=== PATIENT | male | born 1955 | race Hispanic/Latino ===

== ENCOUNTER 2018-11-08 19:08 | Emergency (ER) | payer OTHER ==
[~2018-11-08] VITALS: Ht 180.3 cm; Wt 103.0 kg
--- OUTSIDE RECORDS SUMMARY | 2018-11-08 19:11 | XMS REPORT | Clinical Summary ---
Author Author [employer] [employer] Organization [facility] Address Unknown Phone Unavailable Care Team Providers Care Director Employee Communications Name Role Phone Yolanda Mckeon MD PCP Allergies No Known Allergies Medications End Date Status Medication Sig Dispensed Refills Start Date Active aspirin (ECOTRIN) 81 MG Take 1 tablet 0 enteric coated tablet by mouth daily. Active cyanocobalamin 1,000 1 mL once a 0 mcg/mL injection week. 7 Active imatinib (GLEEVEC) 400 MG 1 tablet 0 chemo tablet daily. 7 Active SOTALOL AF 80 mg tablet 1 tab twice a 0 day 7 Active cholecalciferol, vitamin 1 tab daily 0 D3, 4,000 unit for 5 days 7 tabletIndications: weekly Thursday Vitamin D deficiency through Thursday for 3 months than switch to vitamin D 2000 units daily Active atorvastatin (LIPITOR) 40 Take 1 tablet 90 tablet 1 MG tabletIndications: (40 mg total) 8 Mixed hyperlipidemia by mouth daily. Active blood sugar diagnostic Test blood 200 strip 1 strips (ONETOUCH VERIO) sugar twice a 8 strip test day stripsIndications: Type 2 diabetes mellitus without complication, without long-term current use of insulin ([facility]) Active lancets (onetouch Test blood 200 each 1 ultrasoft) sugar twice a 8 miscIndications: Type 2 day diabetes mellitus without complication, without long-term current use of insulin ([facility]) Active fluticasone (FLONASE) 50 USE 1 SPRAY 16 mL 3 mcg/actuation nasal IN EACH NOSE 8 sprayIndications: TWICE DAILY Allergic state, subsequent encounter Active pantoprazole (PROTONIX) 1 tab twice 60 tablet 1 40 MG EC /d To 8 tabletIndications: replace prior Persistent cough, prescription Gastroesophageal reflux disease without esophagitis 08/05/2019 Active fexofenadine (LEELA) Take 1 tablet 90 tablet 1 180 MG tabletIndications: (180 mg 8 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 location ([facility]), Persistent cough Active glimepiride (AMARYL) 2 MG TAKE 1 TABLET 90 tablet 0 tabletIndications: Type 2 BY MOUTH 8 diabetes mellitus without EVERY DAY complication, without long-term current use of insulin ([facility]) Active pantoprazole (PROTONIX) TAKE 1 TABLET 90 tablet 1 40 MG EC BY MOUTH ONCE 8 tabletIndications: DAILY Gastroesophageal reflux disease without esophagitis Active JANUVIA 100 mg TAKE 1 TABLET 90 tablet 0 tabletIndications: Type 2 BY MOUTH 8 diabetes mellitus without EVERY DAY complication, without long-term current use of insulin ([facility]) Active montelukast (SINGULAIR) TAKE 1 TABLET 30 tablet 3 10 mg tabletIndications: NIGHTLY 8 Allergic state, subsequent encounter Active amLODIPine (NORVASC) 10 TAKE 1 TABLET 30 tablet 0 mg tabletIndications: BY MOUTH 8 Essential hypertension EVERY DAY 02/18/2018 Discontinued fexofenadine (LEELA) Take 1 tablet 30 tablet 11 180 MG tabletIndications: (180 mg 7 Acute non-recurrent total) by maxillary sinusitis mouth daily. 02/18/2018 Discontinued atorvastatin (LIPITOR) 40 Take 1 tablet 90 tablet 1 MG tabletIndications: (40 mg total) 7 Mixed hyperlipidemia by mouth daily. 2017 Discontinued glimepiride (AMARYL) 2 MG Take 1 tablet 90 tablet 0 tabletIndications: Type 2 (2 mg total) 7 diabetes mellitus without by mouth complication, without daily. long-term current use of insulin ([facility]) 2017 Discontinued JANUVIA 100 mg Take 1 tablet 90 tablet 0 tabletIndications: Type 2 (100 mg 7 diabetes mellitus without total) by complication, without mouth daily. long-term current use of insulin ([facility]) 02/15/2018 Discontinued pantoprazole (PROTONIX) Take 1 tablet 90 tablet 1 40 MG EC (40 mg total) 7 tabletIndications: by mouth Gastroesophageal reflux daily. disease without esophagitis 12/07/2017 Discontinued montelukast (SINGULAIR) Take by 0 10 mg tablet mouth. 1 tab 7 once a night 12/07/2017 Discontinued fluticasone (FLONASE) 50 2 spray twice 0 mcg/actuation nasal spray a day 7 12/07/2017 Discontinued losartan (COZAAR) 50 MG Take 1 tablet 90 tablet 1 tabletIndications: Type 2 (50 mg total) 7 diabetes mellitus without by mouth complication, without daily. long-term current use of insulin ([facility]) 02/06/2018 Discontinued JANUVIA 100 mg TAKE 1 TABLET 90 tablet 0 tabletIndications: Type 2 BY MOUTH ONCE 7 diabetes mellitus without DAILY complication, without long-term current use of insulin ([facility]) 02/06/2018 Discontinued glimepiride (AMARYL) 2 MG TAKE 1 TABLET 90 tablet 0 tabletIndications: Type 2 BY MOUTH ONCE 7 diabetes mellitus without DAILY complication, without long-term current use of insulin ([facility]) 12/07/2017 Discontinued losartan (COZAAR) 50 MG Take 1 tablet 30 tablet 1 tabletIndications: Type 2 (50 mg total) 8 diabetes mellitus without by mouth complication, without daily. long-term current use of insulin ([facility]) 02/18/2018 Discontinued losartan (COZAAR) 50 MG Take 1 tablet 90 tablet 1 tabletIndications: Type 2 (50 mg total) 8 diabetes mellitus without by mouth complication, without daily. long-term current use of insulin ([facility]) 05/19/2018 Discontinued fluticasone (FLONASE) 50 1 spray In 15.8 mL 3 mcg/actuation nasal each nose 8 sprayIndications: twice /d Allergic state, subsequent encounter 04/21/2018 Discontinued montelukast (SINGULAIR) Take 1 tablet 30 tablet 3 10 mg tabletIndications: (10 mg total) 8 Allergic state, by mouth subsequent encounter nightly. 1 tab once a night 02/18/2018 Discontinued naproxen (NAPROSYN) 500 1 tab 28 tablet 1 MG tabletIndications: w/breakfast 8 Sciatica of right side and 1 tab w./dinner For 14 days 02/05/2018 cyclobenzaprine Take 1 tablet 30 tablet 1 (FLEXERIL) 10 mg (10 mg total) 8 tabletIndications: by mouth Sciatica of right side, daily for 60 Acute bilateral low back days. pain with right-sided sciatica 05/08/2018 Discontinued JANUVIA 100 mg TAKE 1 TABLET 90 tablet 0 tabletIndications: Type 2 BY MOUTH 8 diabetes mellitus without EVERY DAY complication, without long-term current use of insulin ([facility]) 05/08/2018 Discontinued glimepiride (AMARYL) 2 MG TAKE 1 TABLET 90 tablet 0 tabletIndications: Type 2 BY MOUTH ONCE 8 diabetes mellitus without DAILY complication, without long-term current use of insulin ([facility]) 07/22/2018 Discontinued pantoprazole (PROTONIX) TAKE 1 TABLET 90 tablet 1 40 MG EC BY MOUTH ONCE 8 tabletIndications: DAILY Gastroesophageal reflux disease without esophagitis 08/05/2018 Discontinued fexofenadine (LEELA) Take 1 tablet 90 tablet 1 180 MG tabletIndications: (180 mg 8 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 location ([facility]) 07/22/2018 Discontinued losartan (COZAAR) 50 MG Take 1 tablet 90 tablet 1 tabletIndications: Type 2 (50 mg total) 8 diabetes mellitus without by mouth complication, without daily. long-term current use of insulin ([facility]) 09/17/2018 Discontinued montelukast (SINGULAIR) TAKE 1 TABLET 30 tablet 3 10 mg tabletIndications: NIGHTLY 8 Allergic state, subsequent encounter 09/05/2018 Discontinued JANUVIA 100 mg TAKE 1 TABLET 90 tablet 0 tabletIndications: Type 2 EVERY DAY 8 diabetes mellitus without complication, without long-term current use of insulin ([facility]) 08/07/2018 Discontinued glimepiride (AMARYL) 2 MG TAKE 1 TABLET 90 tablet 0 tabletIndications: Type 2 BY MOUTH ONCE 8 diabetes mellitus without DAILY complication, without long-term current use of insulin ([facility]) 10/19/2018 Discontinued amLODIPine (NORVASC) 10 Take 1 tablet 30 tablet 2 mg tabletIndications: (10 mg total) 8 Essential hypertension by mouth daily. 07/22/2018 Discontinued pantoprazole (PROTONIX) Take 1 tablet 60 tablet 2 40 MG EC (40 mg total) 8 tabletIndications: by mouth Gastroesophageal reflux daily. 1 tab disease without twice /d esophagitis 08/04/2018 Discontinued predniSONE (DELTASONE) 10 1 tab daily 6 tablet 0 mg tabletIndications: for 4 days 8 Poison [place]ison than 1/2 tab for 4 days than stop 08/11/2018 predniSONE (DELTASONE) 10 1 tab daily 6 tablet 0 mg tabletIndications: for 4 days 8 Poison [place] than 1/2 tab for 4 days than stop Active Problems Problem Noted Date Poor compliance with CPAP treatment 02/18/2018 B12 deficiency 08/31/2017 VIOLET (obstructive sleep apnea)sees pul not using CPAP 08/31/2017 Noise-induced hearing loss of both ears 08/31/2017 Gastroesophageal reflux disease without esophagitis 08/31/2017 Iron deficiency 08/31/2017 Vitamin D deficiency 08/31/2017 Exposure to dust,due to job : [employer] 08/31/2017 Overview: Hearing loss and ringing both ears Paroxysmal atrial fibrillation 05/27/2017 Cardiomyopathy 05/27/2017 H/O transfusion 05/27/2017 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 11/23/2014 Hypertension Hyperlipidemia Diabetes mellitus Heart disease Encounters Care Team Description Date Type Specialty Yolanda Mckeon MD Type 2 diabetes mellitus without complication, without long- term current use of insulin ([facility]) 2018 Refill Internal Medicine Yolanda Mckeon MD Essential hypertension 10/19/2018 Refill Internal Medicine Yolanda Mckeon MD Allergic state, subsequent encounter 09/17/2018 Refill Internal Medicine Yolanda Mckeon MD Type 2 diabetes mellitus without complication, without long- term current use of insulin ([facility]) 09/05/2018 Refill Internal Medicine Yolanda Mckeon MD Gastroesophageal reflux disease without esophagitis 08/11/2018 Refill Internal Medicine Yolanda Mckeon MD Type 2 diabetes mellitus without complication, without long- term current use of insulin 08/07/2018 Refill Internal Medicine Yolanda Mckeon MD Poison [place] (Primary Dx); Persistent cough; Type 2 diabetes mellitus without complication, without long-term current use of insulin; Gastroesophageal reflux disease without esophagitis; Mixed hyperlipidemia; Essential hypertension; Poor compliance with CPAP treatment; Need for influenza vaccination; Malignant neoplasm of stomach, unspecified location 08/04/2018 Office Visit Internal Medicine Kathy Ovalle MA Poison [place] 08/04/2018 Refill Internal Medicine Yolanda Mckeon MD Type 2 diabetes mellitus without complication, without long- term current use of insulin; Mixed hyperlipidemia; Essential hypertension; Gastroesophageal reflux disease without esophagitis 07/22/2018 Lab Lab Yolanda Mckeon MD Persistent cough (Primary Dx); Gastroesophageal reflux disease without esophagitis; Type 2 diabetes mellitus without complication, without long-term current use of insulin; Essential hypertension; Mixed hyperlipidemia 07/22/2018 Office Visit Internal Medicine Yolanda Mckeon MD Allergic state, subsequent encounter 05/19/2018 Refill Internal Medicine Yolanda Mckeon MD Type 2 diabetes mellitus without complication, without long- term current use of insulin 05/08/2018 Refill Internal Medicine Yolanda Mckeon MD Allergic state, subsequent encounter 04/21/2018 Refill Internal Medicine Yolanda Mckeon MD Gastroesophageal reflux disease without esophagitis (Primary Dx); Allergic state, subsequent encounter; Poor compliance with CPAP treatment; Type 2 diabetes mellitus without complication, without long-term current use of insulin; Mixed hyperlipidemia; Malignant neoplasm of stomach, unspecified location 02/18/2018 Office Visit Internal Medicine Yolanda Mckeon MD Gastroesophageal reflux disease without esophagitis 02/15/2018 Refill Internal Medicine Yolanda Mckeon MD Sciatica of right side; Acute bilateral low back pain with right-sided sciatica 02/07/2018 Refill Internal Medicine Yolanda Mckeon MD Type 2 diabetes mellitus without complication, without long- term current use of insulin 02/06/2018 Refill Internal Medicine Jacek Gimenez MD 12/16/2017 Orders Only Internal Medicine Yolanda Mckeon MD Sciatica of right side (Primary Dx); Acute bilateral low back pain with right-sided sciatica; Essential hypertension; Allergic state, subsequent encounter; Cough; VIOLET (obstructive sleep apnea); Type 2 diabetes mellitus without complication, without long-term current use of insulin 12/07/2017 Office Visit Internal Medicine Yolanda Mckeon MD Type 2 diabetes mellitus without complication, without long- term current use of insulin 2017 Refill Internal Medicine after 11/07/2017 Immunizations Name Dates Previously Given Next Due INFLUENZA QUAD PF 08/04/2018 Influenza Trivalent 11/23/2016 Pneumococcal Conjugate 11/21/2016 13-Valent Family History Medical History Relation Name Comments Stroke Brother Cancer Father bladder Diabetes Father Heart disease Father Heart attack Maternal Grandfather Cancer Maternal liver cancer Grandmother Diabetes Mother Hyperlipidemia Mother Hypertension Mother Liver cancer Paternal Grandfather Heart attack Paternal Grandmother Relation Name Status Comments Brother (Age 46) Father Alive Maternal Grandfather Maternal Grandmother Mother Alive Paternal Grandfather Paternal Grandmother Social History Date Tobacco Use Types Packs/Day Years Used Never Smoker Smokeless Tobacco: Never Used Alcohol Use Drinks/Week oz/Week Comments Yes 1 Cans of 0.6 occasional beer Sex Assigned at Date Recorded Not on file Industry Job Start Date Occupation Not on file Not on file Not on file Travel End Travel History Travel Start No recent travel history available. Last Filed Vital Signs Time Taken Vital Sign Reading 08/04/2018 1:24 PM CDT Blood Pressure 144/78 08/04/2018 1:24 PM CDT Pulse 74 08/04/2018 1:24 PM CDT Temperature 36.7 C (98 F) - Respiratory Rate - 08/04/2018 1:24 PM CDT Oxygen Saturation 97% - Inhaled Oxygen - Concentration 08/04/2018 1:24 PM CDT Weight 102 kg (225 lb) 08/04/2018 1:24 PM CDT Height 180.3 cm (5' 11") 08/04/2018 1:24 PM CDT Body Mass Index 31.38 Plan of Treatment Health Maintenance Due Date Last Done Comments DIABETIC RETINAL EYE EXAM 07/24/2017 07/24/2016 DIABETIC FOOT EXAM 02/18/2019 02/18/2018 SHINGLES VACCINES (1 of 07/28/2019 Postponed from 2006 2) (Insurance / Financial) COLON CANCER SCREENING 11/23/2026 11/23/2016 INFLUENZA VACCINE Completed 08/04/2018, 11/29/2016, 11/23/2016, Additional history exists Procedures Comments Procedure Name Priority Date/Time Associated Diagnosis THYROID STIMULATING Routine 07/22/2018 Type 2 diabetes mellitus HORMONE 11:29 AM CDT without complication, without long-term current use of insulin Mixed hyperlipidemia MICROALBUMIN / CREATININE Routine 07/22/2018 Type 2 diabetes mellitus URINE RATIO 11:29 AM CDT without complication, without long-term current use of insulin COMPREHENSIVE METABOLIC Routine 07/22/2018 Type 2 diabetes mellitus PANEL 11:29 AM CDT without complication, without long-term current use of insulin CBC HEMOGRAM Routine 07/22/2018 Essential hypertension 11:29 AM CDT Gastroesophageal reflux disease without esophagitis Type 2 diabetes mellitus without complication, without long-term current use of insulin LIPID PANEL Routine 07/22/2018 Mixed hyperlipidemia 11:29 AM CDT HEMOGLOBIN A1C Routine 07/22/2018 Type 2 diabetes mellitus 11:29 AM CDT without complication, without long-term current use of insulin HEMOGLOBIN A1C Routine 02/13/2018 Type 2 diabetes mellitus 11:00 AM CDT without complication, without long-term current use of insulin OBTAIN MEDICAL RECORDS Routine 12/16/2017 after 11/07/2017 Results * Microalbumin / creatinine urine ratio (07/22/2018 11:29 AM CDT) Creatinine, urine, random 117 20 - 370 mg/dL [facility] Microalbumin, urine 0.6 See Note: mg/dL [facility] Comment: LEE Reference Range: Reference Range Not established Microalbumin/creatinine 5 <30 mcg/mg creat [facility] ratio Comment: [place] The ADA defines abnormalities in albumin excretion as follows: Category Result (mcg/mg creatinine) Normal <30 Microalbuminuria 30-299 Clinical albuminuria > SK=[id number] The ADA recommends that at least two of three specimens collected within a 3-6 month period be abnormal before considering a patient to be within a diagnostic category. Specimen Blood Resulting Agency Comment Performing Organization Information: Site ID: [id number] Name: [facility] Address: [address] [place] [id number] Director: Laura Blakely Performing Organization Address [facility] [place] [address] * CBC hemogram (07/22/2018 11:29 AM CDT) WBC 4.4 3.8 - 10.8 Thousand/uL [facility] RBC 4.30 4.20 - 5.80 Million/uL [facility] HGB 13.7 13.2 - 17.1 g/dL [facility] HCT 39.7 38.5 - 50.0 % [facility] MCV 92.3 80.0 - 100.0 fL [facility] MCH 31.9 27.0 - 33.0 pg [facility] MCHC 34.5 32.0 - 36.0 g/dL [facility] RDW 14.5 11.0 - 15.0 % [facility] Platelet count 192 140 - 400 Thousand/uL [facility] MPV 10.1 7.5 - 12.5 fL [facility] Specimen Blood Resulting Agency Comment Performing Organization Information: Site ID: [id number] Name: [facility] Address: [address] [place] [phone] Director: Laura Blakely Performing Organization Address [facility] [place] [address] * Thyroid stimulating hormone (07/22/2018 11:29 AM CDT) TSH 1.90 0.40 - 4.50 mIU/L [facility] Specimen Blood Resulting Agency Comment Performing Organization Information: Site ID: [id number] Name: [facility] Address: [address] [place] [phone] Director: Laura Blakely Performing Organization Address [facility] [place] [address] * Hemoglobin A1c (07/22/2018 11:29 AM CDT) Only the most recent of 2 results within the time period is included. Hemoglobin A1C 6.6 (H) <5.7 % of total Hgb [facility] Comment: LEE For someone without known diabetes, a hemoglobin A1c value of 6.5% or greater indicates that they may have diabetes and this should be confirmed with a follow-up test. For someone with known diabetes, a value <7% indicates that their diabetes is well controlled and a value greater than or equal to 7% indicates suboptimal control. A1c targets should be individualized based on duration of diabetes, age, comorbid conditions, and other considerations. Currently, no consensus exists regarding use of hemoglobin A1c for diagnosis of diabetes for children. Specimen Blood Resulting Agency Comment Performing Organization Information: Site ID: [id number] Name: [facility] Address: [address] [place] [phone] Director: Laura Blakely Performing Organization Address City/[facility] Phone Number [facility] [address] [address] * Lipid panel (07/22/2018 11:29 AM CDT) Cholesterol, total 104 <200 mg/dL [facility] HDL cholesterol 36 (L) >40 mg/dL [facility] Triglycerides 94 <150 mg/dL [facility] LDL cholesterol 50 mg/dL (calc) [facility] calculated Comment: LEE Reference range: <100 Desirable range <100 mg/dL for primary prevention; <70 mg/dL for patients with CHD or diabetic patients with > or=2 CHD risk factors. LDL-C is now calculated using the Dallas-Kaitlin calculation, which is a validated novel method providing better accuracy than the Friedewald equation in the estimation of LDL-C. [place] ORO et al. GABI. 2013;310(19): 7074-5011 (http://education.IMshopping.com/faq/JBV836) Cholesterol/HDL ratio 2.9 <5.0 (calc) [facility] Non-HDL cholesterol 68 <130 mg/dL (calc) [facility] [employer] Comment: LEE For patients with diabetes plus 1 major ASCVD risk factor, treating to a non-HDL-C goal of <100 mg/dL (LDL-C of <70 mg/dL) is considered a therapeutic option. Specimen Blood Resulting Agency Comment Performing Organization Information: Site ID: [id number] Name: [facility] Address: [address] [place] [phone] Director: Laura Blakely Performing Organization Address City/State/Zipcode Phone Number [facility] [place] [phone] [place] [address] * Comprehensive metabolic panel (07/22/2018 11:29 AM CDT) Glucose 115 (H) 65 - 99 mg/dL [facility] Comment: LEE Fasting reference interval For someone without known diabetes, a glucose value between 100 and 125 mg/dL is consistent with prediabetes and should be confirmed with a follow-up test. BUN, whole blood 11 7 - 25 mg/dL [facility] Creatinine 0.83 0.70 - 1.25 mg/dL [facility] Comment: LEE For patients >49 years of age, the reference limit for Creatinine is approximately 13% higher for people identified as -Croatian. EGFR Non-Afr. Croatian 95 > OR=60 mL/min/1.73m2 [facility] EGFR 110 > OR=60 mL/min/1.73m2 [facility] BUN/creatinine ratio NOT APPLICABLE 6 - 22 (calc) [facility] Sodium 140 135 - 146 mmol/L [facility] Potassium 4.4 3.5 - 5.3 mmol/L [facility] Chloride 104 98 - 110 mmol/L [facility] CO2 30 20 - 32 mmol/L [facility] Calcium 8.7 8.6 - 10.3 mg/dL [facility] Protein 6.3 6.1 - 8.1 g/dL [facility] Albumin, S 3.8 3.6 - 5.1 g/dL [facility] Globulin, total 2.5 1.9 - 3.7 g/dL (calc) [facility] Albumin/globulin ratio 1.5 1.0 - 2.5 (calc) [facility] Total bilirubin 0.7 0.2 - 1.2 mg/dL [facility] Alkaline phosphatase 61 40 - 115 U/L [facility] AST 25 10 - 35 U/L [facility] ALT 33 9 - 46 U/L [facility] Specimen Blood Resulting Agency Comment Performing Organization Information: Site ID: [id number] Name: [facility] Address: [address] [place] [phone] Director: Laura Blakely Performing Organization Address City/State/Zipcode Phone Number [facility] [address] [place] [address] * Obtain medical records (12/16/2017) Narrative Performed At after 11/07/2017 Insurance Payer Benefit Subscriber ID Type Phone Address Plan / Group AETNA AETNA xxxxxxxxxx HMO HMO,POS,EP O, MC/EC Advance Directives Patient has advance care planning documents on file. For more information, yuriy butts contact: Davy Spicer [address] [place] [address]
--- NOTE | 2018-11-08 20:52 | Diagnostic Imaging Report ---
EXAMINATION: CHEST 2 VIEWS INDICATION: Productive cough COMPARISON: None FINDINGS: PA and lateral views TUBES and LINES: None. LUNGS: The lungs are diffusely hyperinflated with flattening of the diaphragms. There is no evidence of pneumonia or pulmonary edema. PLEURA: No pleural effusion or pneumothorax. HEART AND MEDIASTINUM: The heart is enlarged. A ICD lead terminates in the right ventricle. BONES AND SOFT TISSUES: No focal osseous lesions. Soft tissues are unremarkable. UPPER ABDOMEN: No free air under the diaphragm. IMPRESSION: Cardiomegaly without vascular congestion. Diffuse pulmonary hyperinflation. Signed by: Dr. Jag Hays MD on 11/08/2018 8:48 PM
[2018-11-08 22:18] VITALS: BP 168/90
== END 2018-11-08 22:25 | disposition home or self-care (01) ==
LOC: ER 19:08
DX: R05 Cough (principal); J42 Unspecified chronic bronchitis; J30.1 Allergic rhinitis due to pollen; I10 Essential (primary) hypertension; E11.9 Type 2 diabetes mellitus without complications; E78.5 Hyperlipidemia, unspecified; Z95.810 Presence of automatic (implantable) cardiac defibrillator
CPT/HCPCS: 71046; 99283

== ENCOUNTER 2019-03-22 16:05 | Emergency (ER) | payer OTHER ==
[~2019-03-22] VITALS: Ht 180.3 cm; Wt 103.0 kg
--- OUTSIDE RECORDS SUMMARY | 2019-03-22 16:20 | XMS REPORT | Clinical Summary ---
Author Author [facility] Address Unknown Phone Unavailable Care Team Providers Care Shell Trim Tool Setter Name Role Phone Yolanda Mckeon MD PCP [...] complication, without long-term current use of insulin ([facility]) Active lancets (onetouch Test blood 200 each 1 ultrasoft) sugar twice a 8 miscIndications: Type 2 day diabetes mellitus without complication, without long-term current use of insulin ([facility]) Active fluticasone (FLONASE) 50 USE 1 SPRAY 16 mL 3 mcg/actuation nasal IN EACH NOSE 8 sprayIndications: TWICE DAILY Allergic state, subsequent encounter 08/05/2019 Active fexofenadine (LEELA) Take 1 tablet 90 tablet 1 180 MG tabletIndications: (180 mg 8 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 location ([facility]), Persistent cough Active glimepiride (AMARYL) 2 MG TAKE 1 TABLET 90 tablet 0 tabletIndications: Type 2 BY MOUTH 8 diabetes mellitus without EVERY DAY complication, without long-term current use of insulin ([facility]) Active sitaGLIPtin (JANUVIA) 100 Take 1 tablet 30 tablet 0 201 MG tabletIndications: (100 mg 9 type 2 diabetes mellitus total) by mouth daily. Active pantoprazole (PROTONIX) Take 1 tablet 30 tablet 0 40 MG EC (40 mg total) 9 tabletIndications: by mouth Gastroesophageal reflux daily. disease without esophagitis Active amLODIPine (NORVASC) 10 TAKE 1 TABLET 30 tablet 0 mg tabletIndications: BY MOUTH 9 Essential hypertension EVERY DAY Active azelastine HCl into each 0 (AZELASTINE NASL) nostril. 9 Active meloxicam (MOBIC) 7.5 mg 1 tab daily 20 tablet 0 tabletIndications: with 9 Sciatica of left side breakfast and 1 tab with dinner for 10 days Active montelukast (SINGULAIR) TAKE 1 TABLET 30 tablet 0 10 mg tabletIndications: BY MOUTH 9 Allergic state, EVERY DAY AT subsequent encounter NIGHT Active gabapentin (NEURONTIN) TAKE 1 60 capsule 0 300 mg CAPSULE BY 9 capsuleIndications: MOUTH IN THE Sciatica of left side MORNING AND IN THE EVENING 05/19/2018 Discontinued fluticasone (FLONASE) 50 1 spray In 15.8 mL 3 mcg/actuation nasal each nose 8 sprayIndications: twice /d Allergic state, subsequent encounter 04/21/2018 Discontinued montelukast (SINGULAIR) Take 1 tablet 30 tablet 3 10 mg tabletIndications: (10 mg total) 8 Allergic state, by mouth subsequent encounter nightly. 1 tab once a night 05/08/2018 Discontinued JANUVIA 100 mg TAKE 1 TABLET 90 tablet 0 tabletIndications: Type 2 BY MOUTH 8 diabetes mellitus without EVERY DAY complication, without long-term current use of insulin ([facility]) 05/08/2018 Discontinued glimepiride (AMARYL) 2 MG TAKE 1 TABLET 90 tablet 0 tabletIndications: Type 2 BY MOUTH ONCE 8 diabetes mellitus without DAILY complication, without long-term current use of insulin ([facility]) 07/22/2018 Discontinued pantoprazole (PROTONIX) TAKE 1 TABLET 90 tablet 1 40 MG EC BY MOUTH ONCE 8 tabletIndications: DAILY Gastroesophageal reflux disease without esophagitis 08/05/2018 Discontinued fexofenadine (LEELA) Take 1 tablet 90 tablet 1 180 MG tabletIndications: (180 mg 8 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 location ([facility]) 07/22/2018 Discontinued losartan (COZAAR) 50 MG Take 1 tablet 90 tablet 1 tabletIndications: Type 2 (50 mg total) 8 diabetes mellitus without by mouth complication, without daily. long-term current use of insulin ([facility]) 09/17/2018 Discontinued montelukast (SINGULAIR) TAKE 1 TABLET 30 tablet 3 10 mg tabletIndications: NIGHTLY 8 Allergic state, subsequent encounter 09/05/2018 Discontinued JANUVIA 100 mg TAKE 1 TABLET 90 tablet 0 tabletIndications: Type 2 EVERY DAY 8 diabetes mellitus without complication, without long-term current use of insulin ([facility]) 08/07/2018 Discontinued glimepiride (AMARYL) 2 MG TAKE 1 TABLET 90 tablet 0 tabletIndications: Type 2 BY MOUTH ONCE 8 diabetes mellitus without DAILY complication, without long-term current use of insulin ([facility]) 10/19/2018 Discontinued amLODIPine (NORVASC) 10 Take 1 tablet 30 tablet 2 mg tabletIndications: (10 mg total) 8 Essential hypertension by mouth daily. 07/22/2018 Discontinued pantoprazole (PROTONIX) Take 1 tablet 60 tablet 2 40 MG EC (40 mg total) 8 tabletIndications: by mouth Gastroesophageal reflux daily. 1 tab disease without twice /d esophagitis 02/21/2019 Discontinued pantoprazole (PROTONIX) 1 tab twice 60 tablet 1 40 MG EC /d To 8 tabletIndications: replace prior Persistent cough, prescription Gastroesophageal reflux disease without esophagitis 08/04/2018 Discontinued predniSONE (DELTASONE) 10 1 tab daily 6 tablet 0 09/12/201 mg tabletIndications: for 4 days 8 Poison madison than 1/2 tab for 4 days than stop 08/11/2018 predniSONE (DELTASONE) 10 1 tab daily 6 tablet 0 mg tabletIndications: for 4 days 8 Poison [place] than 1/2 tab for 4 days than stop 2018 Discontinued glimepiride (AMARYL) 2 MG TAKE 1 TABLET 90 tablet 0 tabletIndications: Type 2 BY MOUTH 8 diabetes mellitus without EVERY DAY complication, without long-term current use of insulin ([facility]) 01/23/2019 Discontinued pantoprazole (PROTONIX) TAKE 1 TABLET 90 tablet 1 40 MG EC BY MOUTH ONCE 8 tabletIndications: DAILY Gastroesophageal reflux disease without esophagitis 12/02/2018 Discontinued JANUVIA 100 mg TAKE 1 TABLET 90 tablet 0 tabletIndications: Type 2 BY MOUTH 8 diabetes mellitus without EVERY DAY complication, without long-term current use of insulin ([facility]) 01/20/2019 Discontinued montelukast (SINGULAIR) TAKE 1 TABLET 30 tablet 3 10 mg tabletIndications: NIGHTLY 8 Allergic state, subsequent encounter 11/22/2018 Discontinued amLODIPine (NORVASC) 10 TAKE 1 TABLET 30 tablet 0 mg tabletIndications: BY MOUTH 8 Essential hypertension EVERY DAY 12/25/2018 Discontinued amLODIPine (NORVASC) 10 TAKE 1 TABLET 30 tablet 0 mg tabletIndications: BY MOUTH 9 Essential hypertension EVERY DAY 01/18/2019 Discontinued JANUVIA 100 mg TAKE 1 TABLET 30 tablet 0 tabletIndications: Type 2 BY MOUTH 9 diabetes mellitus without EVERY DAY complication, without long-term current use of insulin ([facility]) 01/28/2019 Discontinued amLODIPine (NORVASC) 10 TAKE 1 TABLET 30 tablet 0 mg tabletIndications: BY MOUTH 9 Essential hypertension EVERY DAY 01/23/2019 Discontinued sitaGLIPtin (JANUVIA) 100 Take 1 tablet 30 tablet 0 MG tabletIndications: (100 mg 9 type 2 diabetes mellitus total) by mouth daily. 02/15/2019 Discontinued montelukast (SINGULAIR) TAKE 1 TABLET 30 tablet 0 10 mg tabletIndications: BY MOUTH 9 Allergic state, EVERY DAY AT subsequent encounter NIGHT 02/21/2019 Discontinued amLODIPine (NORVASC) 10 TAKE 1 TABLET 30 tablet 0 01/28/ mg tabletIndications: BY MOUTH 9 Essential hypertension EVERY DAY 02/21/2019 Discontinued pantoprazole (PROTONIX) TAKE 1 TABLET 30 tablet 0 40 MG EC BY MOUTH 9 tabletIndications: EVERY DAY Gastroesophageal reflux disease without esophagitis 03/18/2019 Discontinued montelukast (SINGULAIR) TAKE 1 TABLET 30 tablet 0 10 mg tabletIndications: BY MOUTH AT 9 Allergic state, NIGHT subsequent encounter 03/20/2019 Discontinued gabapentin (NEURONTIN) 1 tab qam and 60 capsule 0 300 mg 1 tab qpm 9 capsuleIndications: Sciatica of left side Status Hospital, Clinic, or Ordered Dose Route Frequency Start End Date Other Facility Date Administered Medication Ended keTOROlac (TORadol) 30 mg IM once 02/22/20 injection 30 19 9 mgIndications: Sciatica of left side Active Problems Problem Noted Date Poor compliance with CPAP treatment 02/18/2018 B12 deficiency 08/31/2017 VIOLET (obstructive sleep apnea)sees pul not using CPAP 08/31/2017 Noise-induced hearing loss of both ears 08/31/2017 Gastroesophageal reflux disease without esophagitis 08/31/2017 Iron deficiency 08/31/2017 Vitamin D deficiency 08/31/2017 Exposure to dust,due to job : [employer] 08/31/2017 Overview: Hearing loss and ringing both ears Paroxysmal atrial fibrillation 05/27/2017 Cardiomyopathy 05/27/2017 H/O transfusion 05/27/2017 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 S/p GI bleed/weight loss s/p resection nov 2016 s/p chemotherapy since than ( oral ) : followed at [place] by [place] [facility] Dr Solo Valenzuela 11/23/2014 Hypertension Hyperlipidemia Diabetes mellitus Heart disease Encounters Care Team Description Date Type Specialty Kathy Ovalle MA 03/22/2019 Telephone Internal Medicine Yolanda Mckeon MD Sciatica of left side 03/20/2019 Refill Internal Medicine Yolanda Mckeon MD Allergic state, subsequent encounter 03/18/2019 Refill Internal Medicine ProviderJacek MD 02/23/2019 Orders Only Internal Medicine Makhoul, Yolanda, MD Sciatica of left side (Primary Dx); Cancer of gastrointestinal tract (HCC); Heart disease 02/21/2019 Office Visit Internal Medicine Amarilys Irizarry RN 02/18/2019 Telephone Family Medicine Yolanda Mckeon MD Allergic state, subsequent encounter 02/15/2019 Refill Internal Medicine Yolanda Mckeon MD 02/15/2019 Telephone [facility] Medicine Yolanda Mckeon MD Gastroesophageal reflux disease without esophagitis 02/13/2019 Refill Internal Medicine Yolanda Mckeon MD Essential hypertension 01/31/2019 Refill Internal Medicine Yolanda Mckeon MD Essential hypertension 01/28/2019 Refill Internal Medicine Yolanda Mckeon MD Type 2 diabetes mellitus without complication, without long- term current use of insulin ([facility]) 01/23/2019 Refill Family Medicine Yolanda Mckeon MD Gastroesophageal reflux disease without esophagitis 01/23/2019 Refill Internal Medicine Yolanda Mckeon MD Type 2 diabetes mellitus without complication, without long- term current use of insulin ([facility]) 01/23/2019 Refill Family Medicine Yolanda Mckeon MD Allergic state, subsequent encounter 01/20/2019 Refill Internal Medicine Yolanda Mckeon MD Type 2 diabetes mellitus without complication, without long- term current use of insulin ([facility]) 01/17/2019 Telephone [facility] Yolanda Mckeon MD Type 2 diabetes mellitus without complication, without long- term current use of insulin ([facility]) 01/07/2019 Refill Internal Medicine Yolanda Mckeon MD Type 2 diabetes mellitus without complication, without long- term current use of insulin ([facility]) 01/03/2019 Refill Internal Medicine Yolanda Mckeon MD Essential hypertension 12/25/2018 Refill Internal Medicine Yolanda Mckeon MD Type 2 diabetes mellitus without complication, without long- term current use of insulin ([facility]) 12/02/2018 Refill Internal Medicine Yolanda Mckeon MD Essential hypertension 11/22/2018 Refill Internal Medicine Yolanda Mckeon MD Type 2 diabetes mellitus without complication, without long- term current use of insulin ([facility]) 2018 Refill Internal Medicine Yolanda Mckeon MD Essential hypertension 10/19/2018 Refill Internal Medicine Yolanda Mckeon MD Allergic state, subsequent encounter 09/17/2018 Refill Internal Medicine Yolanda Mckeon MD Type 2 diabetes mellitus without complication, without long- term current use of insulin ([facility]) 09/05/2018 Refill Internal Medicine Yolanda Mckeon MD [...] state, subsequent encounter 04/21/2018 Refill Internal Medicine after 03/21/2018 Immunizations Name Dates Previously Given Next Due INFLUENZA QUAD PF 08/04/2018, 11/29/2016 Influenza Trivalent 11/23/2016 Pneumococcal Conjugate 11/21/2016 13-Valent Pneumococcal 11/20/2016 Polysaccharide Family History Medical History Relation Name Comments [...] Used Never Smoker Smokeless Tobacco: Never Used Tobacco Cessation: Counseling Given: No Alcohol Use Drinks/Week oz/Week Comments Yes 1 Cans of 0.6 occasional beer Sex Assigned at Date Recorded Not on file Industry Job Start Date Occupation Not on file Not on file Not on file Travel End Travel History Travel Start No recent travel history available. Last Filed Vital Signs Time Taken Vital Sign Reading 02/21/2019 3:47 PM CDT Blood Pressure 144/73 02/21/2019 3:47 PM CDT Pulse 87 02/21/2019 3:47 PM CDT Temperature 36.9 C (98.4 F) - Respiratory Rate - 02/21/2019 3:47 PM CDT Oxygen Saturation 97% - Inhaled Oxygen - Concentration 02/21/2019 3:47 PM CDT Weight 101 kg (222 lb 12.8 oz) 02/21/2019 3:47 PM CDT Height 180.3 cm (5' 11") 02/21/2019 3:47 PM CDT Body Mass Index 31.07 Plan of Treatment Care Team Description Date Type Specialty Yolanda Mckeon MD [address] [place], [place] [id number] 03/28/2019 Office Visit Internal Medicine Health Maintenance Due Date Last Done Comments DIABETIC RETINAL EYE EXAM 07/24/2018 07/24/2016 DIABETIC FOOT EXAM 02/18/2019 02/18/2018 INFLUENZA VACCINE 06/23/2019 08/04/2018, 11/29/2016, 11/23/2016, Additional history exists SHINGLES VACCINES (#1) 07/28/2019 Postponed from 2006 (Insurance / Financial) COLON CANCER SCREENING 11/23/2026 11/23/2016 Procedures Comments Procedure Name Priority Date/Time Associated Diagnosis OBTAIN MEDICAL RECORDS Routine 02/23/2019 XR LUMBAR SPINE COMPLETE Routine 02/22/2019 Sciatica of left side 4+ VW 11:35 AM CDT THYROID STIMULATING Routine 07/22/2018 Type 2 diabetes [...] complication, without long-term current use of insulin after 03/21/2018 Results * Obtain medical records (02/23/2019) Narrative Performed At * XR Lumbar Spine Complete 4+ Vw (02/22/2019 11:35 AM CDT) Narrative Performed At EXAMINATION:XR LUMBAR SPINE COMPLETE 4VW [facility] CLINICAL HISTORY:M54.32 Sciaticaleft side, back pain COMPARISON: None TECHNIQUE: A total of 5 radiographic views of the lumbar spine were obtained. IMPRESSION: There are 5 [id number] lumbar-type vertebrae. Normal lumbar lordosis and alignment. No evidence of acute fracture, suspicious osteolytic or osteoblastic lesion. Mild-moderate discogenic endplate osteophyte formation is noted throughout the lumbar spine. There is mild disc height loss and endplate sclerosis at L5-S1. There is likely at least mild facet arthrosis at L5-S1. Sam Ward MD Set Painter, PGY-2 I personally reviewed the images and the resident's findings and agree with the final report. [id number] Procedure Note Hm Interface, Radiology Results Incoming - 02/22/2019 1:01 PM CDT EXAMINATION: XR LUMBAR SPINE COMPLETE 4 VW CLINICAL HISTORY: M54.32 Sciatica left side, back pain COMPARISON: None TECHNIQUE: A total of 5 radiographic views of the lumbar spine were obtained. IMPRESSION: There are 5 [id number] lumbar-type vertebrae. Normal lumbar lordosis and alignment. No evidence of acute fracture, suspicious osteolytic or osteoblastic lesion. Mild-moderate discogenic endplate osteophyte formation is noted throughout the lumbar spine. There is mild disc height loss and endplate sclerosis at L5-S1. There is likely at least mild facet arthrosis at L5-S1. Sam Ward MD Set Painter, PGY-2 I personally reviewed the images and the resident's findings and agree with the final report. [id number] Performing Organization Address [facility] Phone Number [email or web address] [place] [address] * Microalbumin / creatinine urine ratio (07/22/2018 11:29 AM CDT) Creatinine, urine, random 117 20 - 370 mg/dL [facility] [place] Microalbumin, urine 0.6 See Note: mg/dL [facility] Comment: [place] Reference Range: Reference Range Not established Microalbumin/creatinine 5 <30 mcg/mg creat [facility] ratio Comment: [place] The ADA defines abnormalities in albumin excretion as follows: Category Result (mcg/mg creatinine) Normal <30 Microalbuminuria 30-299 Clinical albuminuria > LB=764 The ADA recommends that at least two of three specimens collected within a 3-6 month period be abnormal before considering a patient to be within a diagnostic category. Specimen Blood Resulting Agency Comment Performing Organization Information: Site ID: [id number] Name: [facility] Address: [address] [place] [phone] Director: Laura Blakely Performing Organization Address [facility] Phone Number [email or web address] [address] [address] * CBC hemogram (07/22/2018 11:29 AM CDT) WBC 4.4 3.8 - 10.8 Thousand/uL [facility] [place] RBC 4.30 4.20 - 5.80 Million/uL [facility] [place] HGB 13.7 13.2 - 17.1 g/dL [facility] [place] HCT 39.7 38.5 - 50.0 % [facility] [place] MCV 92.3 80.0 - 100.0 fL [facility] [place] MCH 31.9 27.0 - 33.0 pg [facility] [place] MCHC 34.5 32.0 - 36.0 g/dL [facility] [place] RDW 14.5 11.0 - 15.0 % [facility] [place] Platelet count 192 140 - 400 Thousand/uL [facility] [place] MPV 10.1 7.5 - 12.5 fL [facility] [place] Specimen Blood Resulting Agency Comment Performing Organization Information: Site ID: [id number] Name: [facility] Address: [address] [place] [phone] Director: Laura Blakely Performing Organization Address [facility] Phone Number [facility] [place] [phone] * Thyroid stimulating hormone (07/22/2018 11:29 AM CDT) TSH 1.90 0.40 - 4.50 mIU/L [facility] [place] Specimen Blood Resulting Agency Comment Performing Organization Information: Site ID: PHIL Name: [facility] Address: [address] [place] [phone] Director: Laura Blakely Performing Organization Address [facility] Phone Number [facility] [place] [address] * Hemoglobin A1c (07/22/2018 11:29 AM CDT) Hemoglobin A1C 6.6 (H) <5.7 % of total Hgb [facility] Comment: [place] For someone without known diabetes, a hemoglobin [...] Performing Organization Information: Site ID: [id number] Name: [facility] Address: [address] [place] [phone] Director: Laura Blakely Performing Organization Address [facility] Phone Number [email or web address] [address] [address] * Lipid panel (07/22/2018 11:29 AM CDT) Cholesterol, total 104 <200 mg/dL [facility] HDL cholesterol 36 (L) >40 mg/dL [facility] Triglycerides 94 <150 mg/dL [facility] LDL cholesterol 50 mg/dL (calc) [facility] calculated Comment: [place] Reference range: <100 Desirable range <100 mg/dL for primary prevention; <70 mg/dL for patients with CHD or diabetic patients with > or=2 CHD risk factors. LDL-C is now calculated using the John calculation, which is a validated novel method providing better accuracy than the Friedewald equation in the estimation of LDL-C. [place] ORO et al. GABI. 2013;310(19): 9596-5418 (http://education.Dataloop.IO.[employer]/faq/JSV287) Cholesterol/HDL ratio 2.9 <5.0 (calc) [facility] Non-HDL cholesterol 68 <130 mg/dL (calc) [facility] Comment: [place] For patients with diabetes plus 1 major ASCVD risk factor, treating to a non-HDL-C goal of <100 mg/dL (LDL-C of <70 mg/dL) is considered a therapeutic option. Specimen Blood Resulting Agency Comment Performing Organization Information: Site ID: [id number] Name: [facility] Address: [address] [place] [phone] Director: Laura Blakely Performing Organization Address City/State/[place] [address] * Comprehensive metabolic panel (07/22/2018 11:29 AM CDT) Glucose 115 (H) 65 - 99 mg/dL [facility] Comment: [place] Fasting reference interval For someone without known diabetes, a glucose value between 100 and 125 mg/dL is consistent with prediabetes and should be confirmed with a follow-up test. BUN, whole blood 11 7 - 25 mg/dL [facility] Creatinine 0.83 0.70 - 1.25 mg/dL [facility] Comment: [place] For patients >49 years of age, the reference limit for Creatinine is approximately 13% higher for people identified as -[place]er. EGFR Non-Afr. [place]er 95 > OR=60 mL/min/1.73m2 [facility] EGFR 110 > OR=60 mL/min/1.73m2 [facility] BUN/creatinine ratio NOT APPLICABLE 6 - 22 (calc) [facility] Sodium 140 135 - 146 mmol/L [facility] [place] Potassium 4.4 3.5 - 5.3 mmol/L [facility] [place] Chloride 104 98 - 110 mmol/L [facility] CO2 30 20 - 32 mmol/L [facility] [place] Calcium 8.7 8.6 - 10.3 mg/dL [facility] [place] Protein 6.3 6.1 - 8.1 g/dL [facility] [place] Albumin, S 3.8 3.6 - 5.1 g/dL [facility] [place] Globulin, total 2.5 1.9 - 3.7 g/dL (calc) [facility] [place] Albumin/globulin ratio 1.5 1.0 - 2.5 (calc) [facility] [place] Total bilirubin 0.7 0.2 - 1.2 mg/dL [facility] Alkaline phosphatase 61 40 - 115 U/L [facility] [place] AST 25 10 - 35 U/L [facility] ALT 33 9 - 46 U/L [facility] [place] Specimen Blood Resulting Agency Comment Performing Organization Information: Site ID: [id number] Name: [facility] Address: [address] [place] [phone] Director: Laura Blakely Performing Organization Address City/State/Zipcode Phone Number [email or web address] [place] [address] [place], [place] [phone] after 03/21/2018 Insurance Payer Benefit Subscriber ID Type Phone Address Plan / Group AETNA AETNA xxxxxxxxxx HMO HMO,POS,EP O, MC/EC Advance Directives Patient has advance care planning documents on file. For more information, yuriy butts contact: [facility] [address] [place] [address]
--- OUTSIDE RECORDS SUMMARY | 2019-03-22 16:20 | XMS REPORT | Summary of Care ---
Author Author WINSTON BARRON M.D. Organization Unknown Address Unknown Phone Unavailable Care Team Providers Care Bale Coverer Name Role Phone WINSTON BARRON M.D. Unavailable Unavailable BEATRICE HAWLEY HIWINSTON Unavailable Unavailable Unavailable Unavailable Functional Status Name Dates Details Functional status health issues are not documented Status: Name Dates Details Cognitive status health issues are not documented Status: Problems Name Dates Details Diabetes (250.00, E11.9) Status: Active Gastritis (535.50, K29.70) Status: Active High blood pressure (401.9, I10) Status: Active Heart disease (429.9, I51.9) Status: Active Chronic sinusitis (473.9, J32.9) Status: Active Medications Name Dates Details Pantoprazole Sodium 40 MG Oral Tablet Delayed Release R.N. Active Singulair TABS * Refills: 0 R.N. Active amLODIPine Besylate 10 MG Oral Tablet * Refills: 0 R.N. Active Glimepiride 2 MG Oral Tablet * Refills: 0 R.N. Active Fluticasone Propionate 50 MCG/ACT Nasal Suspension * Refills: 0 R.N. Active Atorvastatin Calcium TABS * Refills: 0 R.N. Active Sotalol HCl (AF) TABS * Refills: 0 R.N. Active Aspirin 81 MG TABS * Refills: 0 R.N. Active Gleevec 400 MG Oral Tablet * Refills: 0 R.N. Active Azelastine HCl - 0.15 % Nasal Solution Ramona in each nostril twice per day * Quantity: 1 Refills: 6 WINSTON BARRON M.D. * Start : 27-Jan-2019 Active 30 ML Ramona Btl Allergies and Adverse Reactions Name Dates Details No Known Drug Allergies (Allergy) Status: Active Past Medical History Name Dates Details History of malignant neoplasm of gastrointestinal tract (V10.00, Z85.00) Status: Resolved Procedures Procedure Dates Details History of Pacemaker Placement Completed History of Gastrointestinal surgery Completed Immunization Name Dates Details Immunizations not documented Social History Name Dates Details - Status: Name Dates Details Never smoker Vital Signs Date Test Result Details [id number]-[id number]-[id number] Height 73 in Status: Weight 226.3125 lb Status: Body Mass Index Calculated 29.86 kg/m2 Status: Body Surface Area Calculated 2.27 m2 Status: Results Date Description Value Details [id number] CT Sinus wo contrast [address] SEE NOTES Comments: EXAM: CT SINUS WITHOUT CONTRAST- nagivationDATE: 02/03/2019 13:14 CDTINDICATION: - J32.9 Chronic sinusitis, unspecifiedCOMPARISON: NoneTECHNIQUE:Axial noncontrast images of the sinuses, w ith coronal and sagittal reformats.IV contrast: None.Total DLP:855.63 mGycm.FINDINGS:Trace mucosal thickening along the floor of the right maxillary sinus. Noair-fluid levels. Both infundibuli are patent. Mucosal thickening within a leftanterior ethmoid air cell. Both sides of the frontal sinus, frontal sinusdrainage pathway, both sides of the sphenoid sinus and sphenoethmoidal recessare clear.The nasal septum is mildly deviated to of the left side. No nasal mass.Bilateral emil bullosa.IMPRESSION:Trace mucosal thickening within the right maxillary sinus and opacification ofa left anterior posterior ethmoid air cell.Nasal septal deviation.--Read by: Xiomara Hatch MDDictated Date/time: 02/03/19 13:35Electronically Signed by: Xiomara Hatch MD 02/03/1913:42FINAL REPORT Plan of Care Name Dates Details Planned Observations Planned Goals not documented Planned Encounters Appointment; WINSTON BARRON M.D. On: 10-Feb-2019 13:30 Instructions Name Dates Details Instructions not documented Encounters Appointment; WINSTON BARRNO M.D. Encounter Diagnosis: Problem not documented On: 27-Jan-2019 13:00
--- OUTSIDE RECORDS SUMMARY | 2019-03-22 16:20 | XMS REPORT | Continuity of Care Document ---
Author Author [facility] Interface Address Unknown Phone Unavailable Problems Problem Status Onset Date Classification Date Reported Comments Source Medications Medication Details Route Status Patient Instructions Ordering Provider Order Date Source Allergies, Adverse Reactions, Alerts Substance Category Reaction Severity Reaction type Status Date Reported Comments Source Immunizations Immunization Date Given Site Status Last Updated Comments Source Results Order Name Results Value Reference Range Date Interpretation Comments Source Vital Signs Vital Sign Value Date Comments Source Encounters Location Location Details Encounter Type Encounter Number Reason For Visit Attending Provider ADM Date DC Date Status Source Departed Emergency Room [id number] LISA REYNA MD 2018 2018 [facility] Procedures Procedure Code Date Perfomer Comments Source X-ray of chest, two views [id number] 2018 [facility]
--- OUTSIDE RECORDS SUMMARY | 2019-03-22 16:20 | XMS REPORT ---
Author Author [facility] Address Unknown Phone Unavailable Care Team Providers Care Hazardous Materials Waste Technician Name Role Phone Nga REYNA Unavailable Unavailable Problems This patient has no known problems. Allergies, Adverse Reactions, Alerts This patient has no known allergies or adverse reactions. Medications This patient has no known medications. Results Test Description Test Time Test Comments Text Results Atomic Results Result Comments CHEST 2 VIEWS 2018 20:47:00 [place] [address] Patient Name: PRAVIN JORDAN MR #: [id number] : 1955 Age/Sex: 63/M Req #: [id number] Adm Physician: Ordered by: LISA REYNA MD Report #: [id number] Location: ER Room/Bed: Procedure: [id number] DX/CHEST 2 VIEWS Exam Date: 11/08/18 Exam Time: 2043 REPORT STATUS: Signed EXAMINATION: CHEST 2 VIEWS INDICATION: Productive cough COMPARISON: None FINDINGS: PA and lateral views TUBES and LINES: None. LUNGS: The lungs are diffusely hyperinflated with flattening of the diaphragms. There is no evidence of pneumonia or pulmonary edema. PLEURA: No pleural effusion or pneumothorax. HEART AND MEDIASTINUM: The heart is enlarged. A ICD lead terminates in the right ventr icle. BONES AND SOFT TISSUES: No focal osseous lesions. Soft tissues are unremarkable. UPPER ABDOMEN: No free air under the diaphragm. IMPRESSION: Cardiomegaly without vascular congestion. Diffuse pulmonary hyperinflation. Signed by: Dr. Shellie Hays MD on 2018 8:48 PM Dictated By: SHELLIE HAYS MD 47 Transcribed By: DOUGLAS on 11/08/182047 COPY TO: LISA REYNA MD
[2019-03-22] MEDS ORDERED: LIDOCAINE HCL 1% 2 ML AMP INJ ONE (17:15)
[2019-03-22] MEDS ORDERED: BACTRIM DS TAB1 EACH PO (17:54)
[2019-03-22] MEDS ORDERED: DOXYCYCLINE HY100 MG PO (17:54)
== END 2019-03-22 19:13 | disposition home or self-care (01) ==
LOC: ER 16:05
DX: L02.212 Cutaneous abscess of back [any part, except buttock and flank] (principal); I10 Essential (primary) hypertension; E11.9 Type 2 diabetes mellitus without complications; E78.5 Hyperlipidemia, unspecified; C16.9 Malignant neoplasm of stomach, unspecified; Z95.810 Presence of automatic (implantable) cardiac defibrillator; Z88.1 Allergy status to other antibiotic agents; Z88.0 Allergy status to penicillin; Z83.3 Family history of diabetes mellitus; Z82.49 Family history of ischemic heart disease and other diseases of the circulatory system
CPT/HCPCS: 99284